=== PATIENT | female | born 1985 | race Hispanic/Latino ===

== ENCOUNTER 2017-04-03 11:37 | Emergency (ER) | payer BC, OTHER ==
[~2017-04-03] VITALS: Ht 157.5 cm; Wt 45.4 kg
[2017-04-03] MEDS ORDERED: IBUPROFEN 600 MG TAB PO STA (11:38)
[2017-04-03] MEDS ORDERED: TRAMADOL HCL 50 MG TAB PO ONE (12:00)
[2017-04-03 13:22] LABS: BILIRUBIN,URINE NEGATIVE (NEGATIVE); KETONES,URINE NEGATIVE (NEGATIVE); LEUKOCYTE ESTERASE ,URINE NEGATIVE (NEGATIVE); NITRITE,URINE NEGATIVE (NEGATIVE); PROTEIN,URINE DIPSTICK NEGATIVE (NEGATIVE); URINE UROBILINOGEN 0.2 mg/dL (0.2 - 1)
[2017-04-03 13:25] LABS: CLARITY,URINE CLEAR (CLEAR); COLOR,URINE YELLOW (YELLOW); PREGNANCY TEST, URINE NEGATIVE (NEGATIVE)
[2017-04-03 13:27] LABS: BACTERIA,URINE RARE /HPF; EPITHELIAL CELLS,URINE RARE /LPF; RBC,URINE 0-5 /HPF (0-5); WBC,URINE (MAN) 0-5 /HPF (0-5)
--- NOTE | 2017-04-03 14:18 | Diagnostic Imaging Report ---
PELVIS AP 1-2 VIEWS, HIP LEFT 2-3 VW (+/- PELVIS) HISTORY: Fall, pain. COMPARISON: None available. FINDINGS: Bones: Left hip arthroplasty. No evidence of hardware fracture. Calcification adjacent to the greater trochanter is without definite soft tissue swelling. The osseous structures are otherwise without displaced fracture. Osseous alignment is within normal limits. Joints: The joint spaces are well-maintained. Soft tissues: The soft tissues appear unremarkable. IMPRESSION: 1. Left hip arthroplasty. Calcifications adjacent to the left greater trochanter are without overlying soft tissue swelling, favoring changes related to surgery/heterotopic ossification. Recommend correlation with focal point tenderness. 2. Otherwise, no acute osseous antibodies. Signed by: DR. Jayden Gant MD on 04/03/2017 2:14 PM
[2017-04-03 14:26] VITALS: BP 133/79
== END 2017-04-03 14:32 | disposition home or self-care (01) ==
LOC: ER 11:37
DX: S70.02XA Contusion of left hip, initial encounter (principal); W01.0XXA Fall on same level from slipping, tripping and stumbling without subsequent striking against object, initial encounter; Y92.008 Other place in unspecified non-institutional (private) residence as the place of occurrence of the external cause; G80.9 Cerebral palsy, unspecified; K58.9 Irritable bowel syndrome, unspecified
CPT/HCPCS: 72170; 81001; 81025; 87086; 99283

== ENCOUNTER 2019-08-21 13:18 | Emergency (ER) | payer BC, OTHER ==
[~2019-08-21] VITALS: Ht 157.5 cm; Wt 45.4 kg
[2019-08-21] MEDS ORDERED: SODIUM CHLORIDE 0.9% 1000ML 1,000 ML IV STA ×2 (13:58→14:02)
[2019-08-21] MEDS ORDERED: SODIUM CHLORIDE FLUSH 10 ML SYR INJ PRN (14:00)
[2019-08-21] MEDS ORDERED: SODIUM CHLORIDE 0.9% 1000ML 2,000 ML ONE (15:00)
[2019-08-21] MEDS ORDERED: POTASSIUM CHLORIDE 20 MEQ TAB CR PO STA (15:13)
[2019-08-21] MEDS ORDERED: POTASSIUM CHLORIDE 20 MEQ TAB CR PO ONE (15:17)
--- NOTE | 2019-08-21 16:39 | Diagnostic Imaging Report ---
EXAM: CT Chest, Abdomen and Pelvis WITH intravenous contrast INDICATION: Chest pain, abdominal pain COMPARISON: None. TECHNIQUE: The chest, abdomen and pelvis were scanned utilizing a multidetector helical scanner from the thoracic inlet to the pubic symphysis following administration of IV contrast. Coronal and sagittal reformations were obtained. Scan was performed during portal venous phase. IV CONTRAST: 100cc Isovue 370 ORAL CONTRAST: Water COMPLICATIONS: None RADIATION DOSE: Total DLP: 470 mGy*cm Dose modulation, iterative reconstruction, and/or weight based adjustment of the mA/kV was utilized to reduce the radiation dose to as low as reasonably achievable. FINDINGS: LINES/ TUBES: None. LUNGS AND AIRWAYS: The central airways are patent. No focal consolidation or pulmonary edema. PLEURA: The pleural spaces are clear. HEART AND MEDIASTINUM: The thyroid gland is normal. No mediastinal, hilar or axillary lymphadenopathy. The heart is normal in size.. There is no pericardial effusion. HEPATOBILIARY: No focal liver lesion. No biliary ductal dilation. Unremarkable gallbladder. SPLEEN: No splenomegaly. PANCREAS: No focal masses or ductal dilatation. ADRENALS: No adrenal nodules. KIDNEYS/URETERS: No hydronephrosis, stones, or solid mass lesions. PELVIC ORGANS/BLADDER: Unremarkable. PERITONEUM / RETROPERITONEUM: No free air or fluid. LYMPH NODES: No lymphadenopathy. VESSELS: Unremarkable. GI TRACT: No abnormal bowel thickening. No bowel obstruction. BONES AND SOFT TISSUES: Status post left total hip replacement. No acute osseous injury. IMPRESSION: No acute findings in the chest, abdomen or pelvis. Signed by: Ulices Roblero MD on 08/21/2019 4:35 PM
--- NOTE | 2019-08-21 17:03 | Emergency Department Note ---
History of Present Illnes History of Present Illness Chief Complaint: bilateral flank pain, n,v,d, intermittent rgt cp History of Present Illness This is a 34 year old female . 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 Any updates have been documented here. Past Medical History Recent Fever: No Clinical Suspicion of Infectio: No New/Unexplained Change in Ment: No Other Medical History: CEREBRAL PALSEY IBS ANKYLOTING SPONDYLOSIS STOMACHE ULCERS Other Surgery: LEFT HIP, KNEE, SVT ABLASION Social History Smoking Cessation: Never Smoker Counseling Performed: No Alcohol Use: None Any Illegal Drug Use: No Other Last Tetanus: UTD Any Pre-Existing Lines (PICC,: No Review of Systems Review of Systems Constitutional: Reports no symptoms EENTM: Reports no symptoms Cardiovascular: Reports as per HPI, Reports chest pain Respiratory: Reports no symptoms Gastrointestinal: Reports as per HPI, Reports abdominal pain, Reports nausea, Reports vomiting Genitourinary: Reports no symptoms Musculoskeletal: Reports no symptoms Integumentary: Reports no symptoms Neurological: Reports no symptoms Psychological: Reports no symptoms Endocrine: Reports no symptoms Hematological/Lymphatic: Reports no symptoms Review of other systems: All other systems negative Physical Exam Related Data Allergies: Coded Allergies: NSAIDS (Non-Steroidal Anti-Inflamma (Verified Allergy, Mild, STOMACH ULCERS, 04/03/17) dicyclomine (Verified Allergy, Mild, PSYCHIATRIC SIDE EFFECTS, 04/03/17) Triage Vital Signs Vital Signs Date Time Temp Pulse Resp B/P (MAP) Pulse Ox O2 Delivery O2 Flow Rate FiO2 08/21/19 13:25 98.6 140 18 120/77 98 Room Air Vital signs reviewed: Yes Physical Exam CONSTITUTIONAL Constitutional: Present well-developed, Present well-nourished HENT HENT: Present normocephalic, Present atraumatic, Present mucosae dry, Present nose normal HENT L/R: Present left ext ear normal, Present right ext ear normal EYES Eyes: Reports PERRL, Reports conjunctivae normal NECK Neck: Present ROM normal PULMONARY Pulmonary: Present effort normal, Present breath sounds normal CARDIOVASCULAR Cardiovascular: Present regular rhythm, Present heart sounds normal, Present capillary refill normal, Present normal rate GASTROINTESTINAL Abdominal: Present soft, Present bowel sounds normal, Present tender (all quadrants); Absent distension GENITOURINARY Genitourinary: Present exam deferred SKIN Skin: Present warm, Present dry MUSCULOSKELETAL Musculoskeletal: Present ROM normal NEUROLOGICAL Neurological: Present alert, Present oriented x 3, Present no gross motor or sensory deficits PSYCHOLOGICAL Psychological: Present mood/affect normal, Present judgement normal Results Laboratory Lab results reviewed: Yes (cbc/bmp/lft normal except potassium= 3.1) Imaging Imaging results reviewed: Yes Impressions [place] [id number] Patient Name: TRISTON AMBRIZ MR #: [id number] : 1985 Age/Sex: 34/F Req #: [id number] Adm Physician: Ordered by: VIRGINIA GIBSON Report #: [id number] Location: [facility] Room/Bed: Procedure: HOPD/CT CHEST WITH CONTRAST-HOPD Exam Date: Exam Time: REPORT STATUS: Signed EXAM: CT Chest, Abdomen and Pelvis WITH intravenous contrast INDICATION: Chest pain, abdominal pain COMPARISON: None. TECHNIQUE: The chest, abdomen and pelvis were scanned utilizing a multidetector helical scanner from the thoracic inlet to the pubic symphysis following administration of IV contrast. Coronal and sagittal reformations were obtained. Scan was performed during portal venous phase. IV CONTRAST: 100cc Isovue 370 ORAL CONTRAST: Water COMPLICATIONS: None RADIATION DOSE: Total DLP: 470 mGy*cm Dose modulation, iterative reconstruction, and/or weight based adjustment of the mA/kV was utilized to reduce the radiation dose to as low as reasonably achievable. FINDINGS: LINES/ TUBES: None. LUNGS AND AIRWAYS: The central airways are patent. No focal consolidation or pulmonary edema. PLEURA: The pleural spaces are clear. HEART AND MEDIASTINUM: The thyroid gland is normal. No mediastinal, hilar or axillary lymphadenopathy. The heart is normal in size.. There is no pericardial effusion. HEPATOBILIARY: No focal liver lesion. No biliary ductal dilation. Unremarkable gallbladder. SPLEEN: No splenomegaly. PANCREAS: No focal masses or ductal dilatation. ADRENALS: No adrenal nodules. KIDNEYS/URETERS: No hydronephrosis, stones, or solid mass lesions. PELVIC ORGANS/BLADDER: Unremarkable. PERITONEUM / RETROPERITONEUM: No free air or fluid. LYMPH NODES: No lymphadenopathy. VESSELS: Unremarkable. GI TRACT: No abnormal bowel thickening. No bowel obstruction. BONES AND SOFT TISSUES: Status post left total hip replacement. No acute osseous injury. IMPRESSION: No acute findings in the chest, abdomen or pelvis. Signed by: Lesley Roblero MD on 08/21/2019 4:35 PM Dictated By: LESLEY ROBLERO MD [id number] Transcribed By: SUSY on 08/21/19 1635 COPY TO: VIRGINIA GIBSON~ Diagnostics Tests Diagnostic test(s) reviewed: Yes (EKG SINUS TACHYCARDIA, NO ISCHEMIC CHANGES, HR= 114, NORMAL AXIS, ) Assessment & Plan Medical Decision Making MDM take rxed meds Reassessment Reassessment symptoms have improved s/p meds Assessment & Plan Final Impression: (1) Acute gastroenteritis (2) Dehydration Depart Disposition: HOME, SELF-CARE Last Vital Signs Date Time Temp Pulse Resp B/P (MAP) Pulse Ox O2 Delivery O2 Flow Rate FiO2 08/21/19 15:08 113 17 100 08/21/19 13:25 98.6 Room Air Home Meds Active Scripts Diphenoxylate Hcl/Atropine (LOMOTIL TABLET) 1 Each Tablet, 2 TAB PO Q6HR PRN for DIARRHEA, #24 TAB PRN DIARRHEA Prov:VIRGINIA GIBSON 08/21/19 Prednisone (PREDNISONE) 50 Mg Tablet, 50 MG PO DAILY, #6 TAB Prov:VIRGINIA GIBSON 08/21/19 Metronidazole (FLAGYL) 500 Mg Tablet, 500 MG PO Q8H, #30 TAB TAKE WITH JUICE AND FOOD Prov:VIRGINIA GISBON 08/21/19 Ciprofloxacin Hcl (CIPRO) 500 Mg Tablet, 500 MG PO Q12H, #20 TAB Prov:VIRGINIA GIBSON 08/21/19 Ondansetron (ONDANSETRON ODT) 8 Mg Tab.rapdis, 4 MG PO Q4HR PRN for NAUSEA AND VOMITING, #30 TAB Prov:VIRGINIA GIBSON 08/21/19 Medications in the ED Sodium Chloride 10 ml PRN PRN INJ IV SITE FLUSH; Start 08/21/19 at 14:00; Stop 09/20/19 at 13:59 Sodium Chloride 1,000 ml @ 1,000 mls/hr Q1H STAT IV Last administered on 08/21/19at 14:55; Admin Dose 1,000 MLS/HR; Start 08/21/19 at 13:58; Stop 08/21/19 at 14:57; Status DC Sodium Chloride 1,000 ml @ 1,000 mls/hr Q1H STAT IV ; Start 08/21/19 at 14:02; Stop 08/21/19 at 15:01; Status DC Sodium Chloride 2,000 ml @ ud STK-MED ONCE .ROUTE ; Start 08/21/19 at 15:00; Stop 08/21/19 at 14:55; Status DC Potassium Chloride 60 meq STK-MED ONCE PO ; Start 08/21/19 at 15:17; Stop 08/21/19 at 15:12; Status DC Potassium Chloride 60 meq NOW STAT PO Last administered on 08/21/19at 15:15; Admin Dose 60 MEQ; Start 08/21/19 at 15:13; Stop 08/21/19 at 15:34; Status DC VIRGINIA GIBSON Aug 21, 2019 17:03
[2019-08-21] MEDS ORDERED: CIPRO500 MG PO (17:10)
[2019-08-21] MEDS ORDERED: FLAGYL500 MG PO (17:10)
[2019-08-21] MEDS ORDERED: LOMOTIL TABLET1 EACH PO (17:10)
[2019-08-21] MEDS ORDERED: ONDANSETRON ODT8 MG PO (17:10)
[2019-08-21] MEDS ORDERED: PREDNISONE50 MG PO (17:10)
[2019-08-21 17:22] VITALS: BP 104/59
== END 2019-08-21 17:24 | disposition home or self-care (01) ==
LOC: FSED 13:58
DX: K52.9 Noninfective gastroenteritis and colitis, unspecified (principal); E86.0 Dehydration; R11.2 Nausea with vomiting, unspecified; G80.9 Cerebral palsy, unspecified
CPT/HCPCS: 71260; 74177; 80048; 80076; 81003; 81025; 82553; 83880; 84484; 85025; 93005; 99284; J7030

== ENCOUNTER 2020-05-10 19:15 | Emergency (ER) | payer BC, OTHER ==
[~2020-05-10] VITALS: Ht 157.5 cm; Wt 44.5 kg
[~2020-05-10 19:15] MED LIST: CIPRO500 MG PO; FLAGYL500 MG PO; LOMOTIL TABLET1 EACH PO; ONDANSETRON ODT8 MG PO; PREDNISONE50 MG PO
[2020-05-10] MEDS ORDERED: ONDANSETRON HCL INJ 2MG/ML 2ML 2 MG/ML VIAL IV STA (19:49)
[2020-05-10] MEDS ORDERED: SODIUM CHLORIDE 0.9% 1000ML 1,000 ML IV STA (19:51)
[2020-05-10] MEDS ORDERED: ONDANSETRON HCL INJ 2MG/ML 2ML 2 MG/ML VIAL ONE (21:08)
[2020-05-10] MEDS ORDERED: SODIUM CHLORIDE 0.9% 1000ML 1,000 ML ONE (21:08)
[2020-05-10] MEDS ORDERED: DICYCLOMINE HCL20 MG PO (21:58)
[2020-05-10] MEDS ORDERED: ONDANSETRON ODT4 MG PO (21:58)
[2020-05-10] MEDS ORDERED: PROTONIX20 MG PO (21:58)
[2020-05-10 23:30] VITALS: BP 123/66
== END 2020-05-10 22:30 | disposition home or self-care (01) ==
LOC: FSED 19:45
DX: R11.2 Nausea with vomiting, unspecified (principal); R10.9 Unspecified abdominal pain; R19.7 Diarrhea, unspecified; G80.9 Cerebral palsy, unspecified; Z87.19 Personal history of other diseases of the digestive system
CPT/HCPCS: 74176; 80048; 80076; 81003; 81025; 85025; 99283; J2405; J7030; U0002

== ENCOUNTER 2021-10-10 17:00 | Emergency (ER) | payer BC, OTHER ==
[~2021-10-10] VITALS: Ht 157.5 cm; Wt 47.7 kg
[~2021-10-10 17:00] MED LIST changes: +DICYCLOMINE HCL20 MG PO; +ONDANSETRON ODT4 MG PO; +PROTONIX20 MG PO
[2021-10-10] MEDS ORDERED: SODIUM CHLORIDE 0.9% 1000ML 1,000 ML IV STA (17:08)
[2021-10-10] MEDS ORDERED: ONDANSETRON HCL INJ 2MG/ML 2ML 2 MG/ML VIAL IV ONE (17:15)
[2021-10-10] MEDS ORDERED: FAMOTIDINE 20 MG/2 ML VIAL IV ONE ×2 (17:15→17:55)
[2021-10-10] MEDS ORDERED: DEXILANT60 MG (17:23)
[2021-10-10] MEDS ORDERED: SODIUM CHLORIDE 0.9% 1000ML 1,000 ML ONE (17:54)
[2021-10-10] MEDS ORDERED: ONDANSETRON HCL INJ 2MG/ML 2ML 2 MG/ML VIAL ONE (17:54)
[2021-10-10] MEDS ORDERED: ACETAMINOPHEN500 MG PO (18:10)
[2021-10-10] MEDS ORDERED: BENZONATATE200 MG PO (18:10)
[2021-10-10] MEDS ORDERED: AZITHROMYCIN250 MG PO (18:10)
== END 2021-10-10 18:30 | disposition home or self-care (01) ==
LOC: FSED 17:03
DX: R05.9 Cough, unspecified (principal); U09.9 Post COVID-19 condition, unspecified; R07.89 Other chest pain; R00.2 Palpitations; E03.9 Hypothyroidism, unspecified; K21.9 Gastro-esophageal reflux disease without esophagitis; G80.9 Cerebral palsy, unspecified
CPT/HCPCS: 71046; 80053; 82553; 84484; 85025; 96374; 96375; 99284; J2405; J7030; 93005